=== PATIENT | female | born 1965 | race Two or more races ===

== ENCOUNTER 2017-07-26 11:18 | Emergency (ER) | payer OTHER ==
[~2017-07-26] VITALS: Ht 165.1 cm; Wt 82.7 kg
[~2017-07-26 11:18] MED LIST: FLUO20CA8 PO; LISI-170 PO; METF10002 PO; OMEP-110 PO; TOPI50TA8 PO
[2017-07-26 11:32] VITALS: BP 115/75
[2017-07-26] MEDS ORDERED: KETOROLAC 30 MG/1 ML ONE (12:37)
[2017-07-26] MEDS ORDERED: DIAZEPAM 5 MG TABLET ONE (12:37)
[2017-07-26] MEDS ORDERED: KETOROLAC 30 MG/1 ML IM ONE (13:00)
[2017-07-26] MEDS ORDERED: DIAZEPAM 5 MG TABLET PO ONE (13:00)
== END 2017-07-26 13:45 | disposition home or self-care (01) ==
LOC: ED 13:39
DX: S16.1XXA Strain of muscle, fascia and tendon at neck level, initial encounter (principal); S29.012A Strain of muscle and tendon of back wall of thorax, initial encounter; E11.9 Type 2 diabetes mellitus without complications; V57.5XXA Driver of pick-up truck or van injured in collision with fixed or stationary object in traffic accident, initial encounter; Y93.89 Activity, other specified; Y92.488 Other paved roadways as the place of occurrence of the external cause; Y99.8 Other external cause status
CPT/HCPCS: 72125; 72131; 96372; 99284; J1885

== ENCOUNTER 2017-10-11 19:31 | Emergency (ER) | payer OTHER ==
[~2017-10-11] VITALS: Ht 165.1 cm; Wt 84.1 kg
[2017-10-11] MEDS ORDERED: ONDANSETRON ODT 4 MG PO ONE (20:00)
[2017-10-11] MEDS ORDERED: PLEASE ENTER HEIGHT AND WEIGHT MC SCH (20:00)
[2017-10-11] MEDS ORDERED: KETOROLAC 30 MG/1 ML IM ONE (20:00)
[2017-10-11] MEDS ORDERED: ONDANSETRON ODT 4 MG ONE (20:39)
[2017-10-11] MEDS ORDERED: KETOROLAC 30 MG/1 ML ONE (20:39)
[2017-10-11] MEDS ORDERED: KETOROLAC 30 MG/1 ML IVPush ONE (21:00)
[2017-10-11 22:16] VITALS: BP 112/61
== END 2017-10-11 22:20 | disposition home or self-care (01) ==
LOC: ED 21:55
DX: S16.1XXA Strain of muscle, fascia and tendon at neck level, initial encounter (principal); E11.9 Type 2 diabetes mellitus without complications; V89.2XXA Person injured in unspecified motor-vehicle accident, traffic, initial encounter; Y93.89 Activity, other specified; Y92.410 Unspecified street and highway as the place of occurrence of the external cause; Y99.8 Other external cause status
CPT/HCPCS: 72020; 72110; 72125; 96374; 99284; J1885; Q0162